=== PATIENT | male | born 1930 | race Caucasian/White ===

== ENCOUNTER 2017-01-20 14:35 | Inpatient (IN) | payer OTHER ==
[2017-01-18 19:57] LABS: BASOPHILS 0.2 %; BASOPHILS ABSOLUTE 0.02 10/3/uL (0.0-0.16); EOSINOPHILS 1.5 %; EOSINOPHILS ABSOLUTE 0.14 10/3/uL (0.0-0.53); HEMATOCRIT 37.2 % (40.0-51.0); HEMOGLOBIN 12.5 g/dL (13.6-17.8); IMMATURE GRANULOCYTES 0.2 %; IMMATURE GRANULOCYTES ABSOLUTE 0.02 10/3/uL (0.0-0.11); LYMPHOCYTES 29.7 %; LYMPHOCYTES ABSOLUTE 2.69 10/3/uL (0.67-4.30); MANUAL DIFF NO %; MEAN CORPUS HGB CONC 33.6 g/dL (32.0-36.0); MEAN CORPUSCULAR HEMOGLOB 30.2 pg (26.0-34.0); MEAN CORPUSCULAR VOLUME 89.9 fL (80-100); MEAN PLATELET VOLUME 11.6 fL (9.2-13.0); MONOCYTES 7.3 %; MONOCYTES ABSOLUTE 0.66 10/3/uL (0.21-1.20); NEUTROPHILS 61.1 %; NEUTROPHILS ABSOLUTE 5.53 10/3/uL (2.02-8.40); PLATELET COUNT 139 10/3/uL (150-400); RBC DISTRIBUTION WIDTH 14.7 % (12.0-16.0); RED CELL COUNT 4.14 10/6/uL (4.7-6.1); WHITE BLOOD CELLS 9.1 10/3/uL (4.5-10.5)
[2017-01-18 20:03] LABS: A/G RATIO 1.1 (0.7-1.9); ALBUMIN 3.3 G/DL (3.5-5.0); ALKALINE PHOSPHATASE 120 U/L (45-117); CHLORIDE, SERUM 101 MMOL/L (96-112); CREATININE 1.33 MG/DL (0.70-1.30); GFR AFRICAN AMERICAN 56 ML/MIN (>=60); GFR NON AFRICAN AMERICAN 49 ML/MIN (>=60); GLOBULIN 2.9 G/DL (2.5-4.1); SGOT(AST) 18 U/L (5-40); SGPT(ALT) 16 U/L (5-65); SODIUM, SERUM 136 MMOL/L (135-148); TOTAL PROTEIN 6.2 G/DL (6.0-8.5)
[2017-01-18 20:04] LABS: BUN (BLOOD UREA NITROGEN) 31 MG/DL (6-23); CALCIUM, SERUM 9.8 MG/DL (8.5-10.4); CO2 (CARBON DIOXIDE) 28 MMOL/L (24-34); GLUCOSE, SERUM 326 MG/DL (60-99); POTASSIUM, SERUM 5.1 MMOL/L (3.5-5.3); TOTAL BILIRUBIN 0.3 MG/DL (0-1.2)
--- NOTE | ~2017-01-20 | DS ---
Discharge Summary [facility] [address] [facility] [place]. [address] NAME: GOPAL ZELAYA : 32 STATUS : DIS IN PAT#: [id number] AGE: 86 ADM/REG DATE : 01/20/17 MR#: [id number] REPORT SERV DATE: 01/24/17 DICTATED BY: TIAN LINDSAY DATE: 01/24/17 REPORT STATUS : Draft TRANSCRIBED BY: MODL DATE: 01/24/17 ADMISSION DATE: 01/20/2017 DISCHARGE DATE: 01/24/2017 The patient is an 86-year-old male with a history of atrial fibrillation, normocytic anemia, hypertension, diabetes, who presented to the hospital with a complaint of dark red blood for five days per rectum. For further details please refer to H and P dictated by Dr. Vang on 01/20/2017. HOSPITAL COURSE: Upon presentation to the hospital, the patient was diagnosed with GI bleed and admitted on the hospital service for further management. GI was consulted to assist with management for further details. Please refer to consultation note dictated by Enoch Jimenez on 01/21/2017. The patient was placed n.p.o. and prepped for colonoscopy. The patient was taken to the GI Suite where an EGD and colonoscopy were performed. His EGD was negative; however, his colonoscopy noted extensive diverticular disease with blood throughout the colon with bleeding. From GI evaluation etiology of his bleed most likely diverticular bleed. The patient was brought back to the medical floor, placed on clear liquid diet which he tolerated. His H and H's were continued to monitor, which remained stable. The patient's diet was advanced, and the patient tolerated the diet. The patient was cleared for discharge on the ; however, given that the patient was evaluated by Physical Therapy with recommendations for the patient being discharged for subacute rehab caseworker was consulted to assist with placement of the patient. Throughout his entire hospitalization the patient has remained hemodynamically stable. However, given his history of atrial fibrillation the patient was initially was originally on Eliquis, at the time of presentation Eliquis was held. At this time of discharge the patient's Chads2 score is 4 with a 4% risk of a cerebrovascular accident. His HAS-BLED score is 4 placing of an 8.7 risk of rebleeding. Given that at this time his bleeding risk is higher than benefit obtained from anticoagulation and given his advanced age and recent history of bleeding we will hold anticoagulation for now to be re-evaluated by the patient's primary care physician or manager dish as an outpatient setting. All other chronic medical issues were managed in the hospital. Given resolution of presenting symptoms, given conclusion of workup, given his hemodynamic stability, the patient will be discharged to follow up with primary care physician as an outpatient. Plan has been discussed with the patient, who voices understanding and is agreeable with this plan. DISCHARGE DIAGNOSES: 1. Lower gastrointestinal bleed. 2. Atrial fibrillation. 3. Normocytic anemia. 4. Diabetes type 2. 5. Acute kidney injury. 6. Hypertension. 7. Dementia. DISCHARGE PHYSICAL EXAMINATION: VITAL SIGNS: Blood pressure 123/62 with a pulse of 76, respirations 18, O2 saturation 100% on room air, and temperature 97.4. Discharge Summary [address] [address] NAME: GOPAL ZELAYA : 32 STATUS : DIS IN [facility]#: [id number] AGE: 86 ADM/REG DATE : 01/20/17 MR#: [id number] REPORT SERV DATE: 01/24/17 DICTATED BY: TIAN LINDSAY DATE: 01/24/17 REPORT STATUS : Draft TRANSCRIBED BY: CHARLES DATE: 01/24/17 GENERAL: The patient lying in bed, in no acute distress. He is very pleasant, very conversational. HEENT: Normocephalic and atraumatic. Extraocular motors intact. Oral mucosa moist. Pupils round and reactive to light and accommodation. Extraocular motors intact. NECK: Trachea midline and symmetric. No JVD noted. No thyromegaly present. CHEST: Nontender to palpation. CARDIOVASCULAR: Irregularly irregular rate and rhythm. I didn't appreciate any murmurs. LUNGS: Clear to auscultation bilaterally. ABDOMEN: Flat, soft, nontender, and nondistended. No masses palpated. EXTREMITIES: No cyanosis, no clubbing, no edema. NEURO: Alert and oriented x3. No focal deficits appreciated. DISCHARGE MEDICATIONS: 1. Atorvastatin 40 mg p.o. daily. 2. Bumex 1 mg p.o. daily. 3. Vitamin B12 1000 mcg IM q.30 days. 4. Vitamin D 50,000 units p.o. on Fridays. 5. Gabapentin 100 mg p.o. at bedtime. 6. Insulin Levemir 10 mg subcu at bedtime. 7. Xalatan one drop ophthalmic at bedtime. 8. Claritin 10 mg p.o. every morning. 9. Remeron 50 mg p.o. at bedtime. 10.Nexium 40 mg p.o. every morning. 11.Tramadol 50 mg p.o. at 0800, 1200, 1700, and 2100 hours. 12.Metformin 500 mg p.o. with supper. 13.Aspirin 81 mg p.o. daily. 14.Dorzolamide one drop ophthalmic. 15.Tamsulosin 0.4 mg p.o. 8 o'clock and 1700 hours. 16.Mucinex 600 mg p.o. daily. 17.Calmoseptine one application topically at 8 o'clock, and 5:00 p.m. PROCEDURES: The patient underwent upper GI endoscopy on 01/22/2017. The patient also underwent colonoscopy on 01/22/2017. CONSULTANTS: GI. DISPOSITION: The patient will be discharged to acute rehab. ACTIVITY: As tolerated. DIET: Diabetic diet. Greater than 30 minutes were spent on chart review, coordinating care, discussion of case with Case Management, coordinating discharge, dictation of note, and medication reconciliation. Discharge Summary [address] [address] NAME: GOPAL ZELAYA : 32 STATUS : DIS IN [facility]#: [id number] AGE: 86 ADM/REG DATE : 01/20/17 MR#: [id number] REPORT SERV DATE: 01/24/17 DICTATED BY: TIAN LINDSAY DATE: 01/24/17 REPORT STATUS : Draft TRANSCRIBED BY: CHARLES DATE: 01/24/17 LETHA/CHARLES Tian Lindsay MD / [id number] CC: MD Emma Byers NP
--- NOTE | ~2017-01-20 | EGD ---
EGD REPORT [facility] [address] [place] [address] NAME: ELMER ROSA : 32 STATUS : ADM IN PAT#: [id number] AGE: 86 ADM/REG DATE : 01/20/17 MR#: [id number] REPORT SERV DATE: 01/22/17 DICTATED BY: CRISTOPHER DENIS DATE: 01/22/17 REPORT STATUS : Draft [facility]: [facility] DATE: 01/22/17 Endoscopy Center Patient Name: Elmer Rosa Date of : 1930 Attending MD: CRISTOPHER DENIS MD Procedure Date No Time: 01/22/2017 Procedure: Colonoscopy Indications: Hematochezia Referring MD: SINAN HANEY Medicines: Monitored Anesthesia Care Complications: No immediate complications. Estimated blood loss: None. Procedure: Pre-Anesthesia Assessment: - ASA Grade Assessment: IV - A patient with severe systemic disease that is a constant threat to life. After I obtained informed consent, the scope was passed under direct vision. Throughout the procedure, the patient's blood pressure, pulse, and oxygen saturations were monitored continuously. The CF [id number] was introduced through the anus and advanced to the terminal ileum, with identification of the appendiceal orifice and IC valve. The colonoscopy was technically difficult and complex due to multiple diverticula in the colon, inadequate bowel prep and poor endoscopic visualization. The patient tolerated the procedure well. The quality of the bowel preparation was poor. Findings: The perianal and digital rectal examinations were normal. Pertinent negatives include no palpable rectal lesions. The terminal ileum appeared normal. Red blood was found in the entire colon. Many large-mouthed diverticula were found in the sigmoid colon. The exam was otherwise without abnormality on direct and retroflexion views. Impression: - Preparation of the colon was poor. - The examined portion of the ileum was normal. - Blood in the entire examined colon. - Diverticulosis in the sigmoid colon. - The examination was otherwise normal on direct and retroflexion views. Recommendation: - Return patient to hospital priest for observation. - Check hemoglobin q 12 hours until stable. - Clear liquid diet. EGD REPORT [address] [address] NAME: ELMER ROSA : 32 STATUS : ADM IN [facility]#: [id number] AGE: 86 ADM/REG DATE : 01/20/17 MR#: [id number] REPORT SERV DATE: 01/22/17 DICTATED BY: CRISTOPHER DENIS DATE: 01/22/17 REPORT STATUS : Draft TRANSCRIBED BY: Apptentive DATE: 01/22/17 - Expect no further bleeding - If there is recurrent GI bleeding, please call [facility] - If there is recurrent GI bleeding, patient would likely benefit from embolization Procedure Code(s): --- Professional --- 74695, Colonoscopy, flexible, proximal to splenic flexure; diagnostic, with or without collection of specimen(s) by brushing or washing, with or without colon decompression (separate procedure) Diagnosis Code(s): --- Professional --- K57.30, Diverticulosis of large intestine without perforation or abscess without bleeding K92.2, Gastrointestinal hemorrhage, unspecified K92.1, Melena CPT copyright 2013 [employer]. All rights reserved. The codes documented in this report are preliminary and upon public services assistant review may be revised to meet current compliance requirements. Cristopher Denis MD CRISTOPHER DENIS MD 01/22/2017 8:54 AM This report has been signed electronically. Number of Addenda: 0 Note Initiated On: 01/22/2017 7:45 AM Scope Withdrawal Time 0 hours 13 minutes 32 seconds [address] [place] [address]
--- NOTE | ~2017-01-20 | EGD ---
EGD REPORT [facility] [address] [address] NAME: ELMER ROSA : 32 STATUS : ADM IN PAT#: [id number] AGE: 86 ADM/REG DATE : 01/20/17 MR#: [id number] REPORT SERV DATE: 01/22/17 DICTATED BY: CRISTOPHER DENIS DATE: 01/22/17 REPORT STATUS : Draft TRANSCRIBED BY: [facility] DATE: 01/22/17 Endoscopy Center Patient Name: Elmer Rosa Date of : 1930 Attending MD: CRISTOPHER DENIS MD Procedure Date No Time: 01/22/2017 Procedure: Upper GI endoscopy Indications: Hematochezia Referring MD: SINAN HANEY Medicines: Monitored Anesthesia Care Complications: No immediate complications. Estimated blood loss: None. Procedure: Pre-Anesthesia Assessment: - ASA Grade Assessment: IV - A patient with severe systemic disease that is a constant threat to life. After obtaining informed consent, the endoscope was passed under direct vision. Throughout the procedure, the patient's blood pressure, pulse, and oxygen saturations were monitored continuously. The GIF [id number] was introduced through the mouth, and advanced to the second part of duodenum. The upper GI endoscopy was accomplished without difficulty. The patient tolerated the procedure well. Findings: The examined esophagus was normal. No gross lesions were noted in the entire examined stomach. The examined duodenum was normal. The cardia and gastric fundus were normal on retroflexion. Impression: - Normal examination. Recommendation: - Perform a colonoscopy today. Procedure Code(s): --- Professional --- 68681, Esophagogastroduodenoscopy, flexible, transoral; diagnostic, including collection of specimen(s) by brushing or washing, when performed (separate procedure) Diagnosis Code(s): --- Professional --- K92.1, Melena CPT copyright 2013 [employer]. All rights reserved. The codes documented in this report are preliminary and upon processing specialist review may EGD REPORT [place] [address]. [address] NAME: ELMER ROSA : 32 STATUS : ADM IN [facility]#: [id number] AGE: 86 ADM/REG DATE : 01/20/17 MR#: [id number] REPORT SERV DATE: 01/22/17 DICTATED BY: CRISTOPHER DENIS DATE: 01/22/17 REPORT STATUS : Draft TRANSCRIBED BY: [facility] DATE: 01/22/17 be revised to meet current compliance requirements. Cristopher Denis MD CRISTOPHER DENIS MD 01/22/2017 8:49 AM This report has been signed electronically. Number of Addenda: 0 Note Initiated On: 01/22/2017 7:42 AM [facility] [place] [address]
--- NOTE | ~2017-01-20 | HP ---
History And Physical [place] [address] [facility] [place]. [address] NAME: GOPAL ZELAYA : 32 STATUS : ADM IN [facility]#: [id number] AGE: 86 ADM/REG DATE : 01/20/17 MR#: [id number] REPORT SERV DATE: 01/20/17 DICTATED BY: SAVANNAH MCKINNEY DATE: 01/20/17 REPORT STATUS : Draft TRANSCRIBED BY: MODL DATE: 01/20/17 DATE OF ADMISSION: 01/20/2017 REASON FOR ADMISSION: Dark red blood for five days from the rectum. HISTORY OF PRESENT ILLNESS: An 86-year-old male with known history of paroxysmal atrial fibrillation, on chronic Eliquis, has been compliant with it; rtu-yarcyyt-quxvfabrl diabetes in the past, recently placed on insulin; hypertension; dementia, but yet fairly lucid; known history of CAD with CABG; known surgical history of cholecystectomy and CABG. The patient comes in from recent discharge in 11/2016. At that time, had bradycardia due to digoxin toxicity. Concerned about possible pacemaker at some point. The patient apparently is no longer taking his digoxin or metoprolol. Comes in with mild RVR, atrial fibrillation, as well as five-day history of dark red blood from the rectum at least five times a day, and on concomitant Eliquis and aspirin. No fevers. Positive chills. Positive nausea. No vomiting. No diarrhea. No chest pain. No chest pressure. Some mild shortness of breath recently. No abdominal tenderness either. PAST MEDICAL HISTORY: See above. PAST SURGICAL HISTORY: Includes unclear bladder electrode propagation system done in [place] years ago, apparently does not help with his urinary incontinence. ALLERGIES: APPARENTLY IS CODEINE. FAMILY HISTORY: Hypertension in at least one parent. HOME MEDICATIONS: See MAR. Continue what is relevant, for which he is on Nexium, aspirin, and Eliquis as an outpatient. SOCIAL HISTORY: Does not drink, do drugs, or do alcohol. Is at [facility]. OBJECTIVE: VITAL SIGNS: 140/78, 98.1 temp, 118 pulse, 18 respirations, 98% room air. GENERAL: In no acute distress. HEENT: PERRLA. No scleral icterus. CARDIOVASCULAR: Tachycardic. No murmur auscultated. RESPIRATORY: Decreased breath sounds. No wheezes. No crackles. Clear to auscultation bilaterally. ABDOMEN: Nontender, nondistended. Positive bowel sounds. EXTREMITIES: No edema, no ecchymosis. NEURO: A and O x4/4. GCS 15. LABORATORY DATA: Labs have a white count that is 6.7, hemoglobin is 9.4, 145,000 platelets, 4.7 potassium, 27 bicarb, 1.56 creatinine, 33 BUN, 138 sodium, 412 sugar. Troponin is normal. INR 1.6. I am going to get a CT abdomen and pelvis. There is an EKG that has what appears to be pacer spikes throughout. No ischemic ST-T changes noted. History And Physical [address] [place]. [address] NAME: GOPAL ZELAYA : [birth year] STATUS : ADM IN [facility]#: [id number] AGE: 86 ADM/REG DATE : 01/20/17 MR#: [id number] REPORT SERV DATE: 01/20/17 DICTATED BY: SAVANNAH MCKINNEY DATE: 01/20/17 REPORT STATUS : Draft TRANSCRIBED BY: CHARLES DATE: 01/20/17 ASSESSMENT AND PLAN: 1. Acute blood loss anemia likely due to mid versus lower gastrointestinal tract bleed. 2. Atrial fibrillation, rapid ventricular response. Has a known history of symptomatic bradycardia due to digoxin. Was taken off even beta-blockade. 3. Acute kidney injury versus chronic kidney disease, known. This more than likely is acute kidney injury on chronic kidney disease, baseline is prior 1.0 to 1.3. 4. Suspected dementia, but fairly lucid. 5. Hyperglycemia. Get A1c to determine if insulin dependent. PLAN: We will go ahead and admit this patient. We will give IV iron dextran. H and H q.6. If drops less than 7, we will go ahead and transfuse 2 units. I will ask Cardiology to come by. Given the fact that the patient has symptomatic bradycardia due to digoxin toxicity, was not recommend to have any metoprolol. This patient is not on any AV lorena blocking agents as an outpatient. As a result, if persistently tachycardic, we will place the patient on amiodarone until Cardiology can see the patient and I will go ahead and ask GI to evaluate for likely endoscopy, then colonoscopy thereafter. We will also hold his Eliquis and aspirin at this time. Could consider possible Plavix if indeed he has a GI blood loss as a result of any ulceration. Would need at least 12 weeks of PPI b.i.d. therapy. In the interim, place on IV PPI b.i.d. We will also go ahead and get a CT abdomen and pelvis for nephrolithiasis rule out and to determine any occult bleed. Give NovoLog 8 units at this time and then Accu-Cheks q.6. See rest of my orders. All questions were answered. Took well over 60 minutes to do. We will ask pharmacy to please do home LUIS MIGUEL. GELY/MODL Savannah Mckinney DO / [id number] CC: MD SINAN Schmitt
--- NOTE | ~2017-01-20 | CN ---
Consultation Report [facility] [address] [place]. [address] NAME: GOPAL ROSA : 34 STATUS : ADM IN [facility]#: [id number] AGE: 86 ADM/REG DATE : 01/20/17 MR#: [id number] REPORT SERV DATE: 01/21/17 DICTATED BY: TARYN HALL DATE: 01/21/17 REPORT STATUS : Draft TRANSCRIBED BY: MODL DATE: 01/21/17 GI CONSULTATION DATE OF CONSULTATION: 01/21/2017 REASON FOR CONSULTATION: Evaluation and management of GI bleeding. HISTORY OF PRESENT ILLNESS: Mr. Rosa is an 86-year-old male patient, who was admitted on 01/20 with chief complaint of dark red blood per rectum for roughly seven days. The patient tells me that he began having bleeding seven days ago. He states he has had multiple bloody movements on a daily basis. He has a history of atrial fibrillation, on chronic Eliquis and aspirin. He states that he has never had GI bleeding before. This is painless. He has not seen any black tarry stools or any nausea or vomiting. No fever, chills, chest pain, or shortness of breath. He has had some mild weakness and near syncopal episodes with change of position per his report. He states that he had a bloody bowel movement overnight, but nothing this morning. He has been held n.p.o. after midnight. Plan from a GI perspective is to prep him today for EGD and colonoscopy to be done tomorrow as his last dose of Eliquis was yesterday morning. This would need to be held for eight hours prior to endoscopy. I did discuss this with him. Risks, benefits, alternatives, and complications were detailed for him to include, but not limited to risk of bleeding, perforation, infection, reaction to medications as well as cardiac and pulmonary side effects. He is agreeable to proceed. The patient does tell me that he has never had an EGD nor a colonoscopy nor has he had GI bleeding in the past. PAST MEDICAL HISTORY: Positive for coronary artery disease, status post CABG; atrial fibrillation, on Eliquis and aspirin; hypertension; type 2 diabetes; hypercholesterolemia; bradyarrhythmia. PAST SURGICAL HISTORY: Includes cholecystectomy and CABG. SOCIAL HISTORY: No alcohol, tobacco, or illicits. Apparently, he lives at an assisted living facility. FAMILY HISTORY: Noncontributory from a GI standpoint. ALLERGIES: CODEINE. HOME MEDICATIONS: Eliquis, aspirin, Lipitor, Bumex, Calmoseptine, vitamin B12, Trusopt, vitamin D, Nexium, Neurontin, Mucinex, Levemir, Xalatan, Claritin, Fortamet, Remeron, Flomax, Ultram. REVIEW OF SYSTEMS: A 10-point review of systems obtained with pertinent positives addressed in the history of present illness. Consultation Report [address] [place]. [address] NAME: GOPAL ROSA : 34 STATUS : ADM IN [facility]#: [id number] AGE: 86 ADM/REG DATE : 01/20/17 MR#: [id number] REPORT SERV DATE: 01/21/17 DICTATED BY: TARYN HALL DATE: 01/21/17 REPORT STATUS : Draft TRANSCRIBED BY: MODL DATE: 01/21/17 PERTINENT LABORATORY DATA: Sodium is 145, potassium 4.0, BUN is 28, creatinine 1.07. White count is 7.7, hemoglobin 9, hematocrit 27.0, platelet count 150. INR 1.6. Troponin 0.06. It should be noted hemoglobin on 01/18/2017 was 12.5, as well as a hemoglobin in 11/[address] of the abdomen and pelvis is ordered, but not been taken. PHYSICAL EXAMINATION: VITAL SIGNS: Temperature 97.5, pulse 95, respirations 18, and blood pressure 111/66. NEURO: Reveals a male, resting in bed, who awakens to name. He is mildly confused on awakening, but is clear after he becomes more awake. He is oriented x3. GENERAL: He is cooperative. He is in no obvious distress. HEAD, EARS, EYES, NOSE, AND THROAT: Anicteric. Pupils equal, round, reactive to light and accommodation. Normocephalic and atraumatic. NECK: No JVD. No palpable nodes. Supple. LUNGS: Diminished bilaterally in the bases with normal respiratory effort exhibited. Equal expansion. Clear in the upper lobes. CARDIOVASCULAR SYSTEM: Irregular rate and rhythm. ABDOMEN: Soft, nontender, nondistended. No rebound or guarding elicited on exam. No organomegaly. He has active bowel sounds in all four quadrants. EXTREMITIES: No edema. Normal distal pulses. SKIN: Warm, dry, and intact. RECTAL: With maroon blood in the rectal vault. No palpable masses. ASSESSMENT: 1. GI bleed with maroon stools for seven days in duration. Differential diagnosis includes diverticular, peptic ulcer disease, AVMs, neoplasm, or hemorrhoidal. 2. Acute blood loss anemia. 3. Atrial fibrillation, on Eliquis, last dose on 01/20 at 8 a.m. 4. Acute kidney injury. 5. Mild dementia. PLAN: 1. GoLYTELY bowel prep today. 2. Monitor H and H, transfuse as needed. 3. EGD and colonoscopy on 01/[address] García. Other recommendations to follow exam. CIRA/CHARLES [place] TRINA Graham / [id number] Consultation Report [address] [address] NAME: GOPAL ROSA : [birth year] STATUS : ADM IN [facility]#: [id number] AGE: 86 ADM/REG DATE : 01/20/17 MR#: [id number] REPORT SERV DATE: 01/21/17 DICTATED BY: TARYN HALL DATE: 01/21/17 REPORT STATUS : Draft TRANSCRIBED BY: MODL DATE: 01/21/17 CC: MD Julian Schmitt Sherry R.
[2017-01-20 12:43] LABS: BASOPHILS 0.2 %; BASOPHILS ABSOLUTE 0.01 10/3/uL (0.0-0.16); EOSINOPHILS 0.5 %; EOSINOPHILS ABSOLUTE 0.03 10/3/uL (0.0-0.53); ER CBC TAT 0 Hrs 08 Mins; HEMATOCRIT 27.9 % (40.0-51.0); HEMOGLOBIN 9.4 g/dL (13.6-17.8); IMMATURE GRANULOCYTES 0.2 %; IMMATURE GRANULOCYTES ABSOLUTE 0.01 10/3/uL (0.0-0.11); LYMPHOCYTES 21.3 %; LYMPHOCYTES ABSOLUTE 1.42 10/3/uL (0.67-4.30); MANUAL DIFF NO %; MEAN CORPUS HGB CONC 33.7 g/dL (32.0-36.0); MEAN CORPUSCULAR HEMOGLOB 30.3 pg (26.0-34.0); MEAN PLATELET VOLUME 10.5 fL (9.2-13.0); MONOCYTES 6.3 %; MONOCYTES ABSOLUTE 0.42 10/3/uL (0.21-1.20); NEUTROPHILS 71.5 %; NEUTROPHILS ABSOLUTE 4.77 10/3/uL (2.02-8.40); PLATELET COUNT 145 10/3/uL (150-400); RBC DISTRIBUTION WIDTH 15.1 % (12.0-16.0); WHITE BLOOD CELLS 6.7 10/3/uL (4.5-10.5)
[2017-01-20 12:49] LABS: INTERNATIONAL NORMAL RATI 1.6 UNITS (-); PARTIAL THROMBO TIME 35.4 SEC (22.5-37.2); PROTIME (NOT ORD) 18.8 SEC (12.0-14.5)
[2017-01-20 13:00] LABS: A/G RATIO 1.1 (0.7-1.9); ALBUMIN 2.9 G/DL (3.5-5.0); BUN (BLOOD UREA NITROGEN) 33 MG/DL (6-23); CALCIUM, SERUM 9.4 MG/DL (8.5-10.4); CHLORIDE, SERUM 103 MMOL/L (96-112); CO2 (CARBON DIOXIDE) 27 MMOL/L (24-34); CREATININE 1.56 MG/DL (0.70-1.30); GFR AFRICAN AMERICAN 47 ML/MIN (>=60); GFR NON AFRICAN AMERICAN 40 ML/MIN (>=60); GLOBULIN 2.7 G/DL (2.5-4.1); POTASSIUM, SERUM 4.7 MMOL/L (3.5-5.3); SGOT(AST) 12 U/L (5-40); SGPT(ALT) 14 U/L (5-65); SODIUM, SERUM 138 MMOL/L (135-148); TOTAL BILIRUBIN 0.3 MG/DL (0-1.2); TOTAL PROTEIN 5.6 G/DL (6.0-8.5); TROPONIN I 0.04 NG/ML (<0.05)
[2017-01-20 13:02] LABS: BAND NEUTROPHILS 5 %; EOSINOPHILS 1 %; EOSINOPHILS ABSOLUTE (CALC) 0.07 10/3/uL (0.0-0.53); ER DIFF TAT 0 Hrs 27 Mins; HELMET CELLS OCC (0-2/OIF); LYMPHOCYTES 22 %; LYMPHOCYTES ABSOLUTE (CALC) 1.47 10/3/uL (0.67-4.30); MONOCYTES 7 %; MONOCYTES ABSOLUTE (CALC) 0.47 10/3/uL (0.21-1.20); NEUTROPHILS ABSOLUTE (CALC) 4.69 10/3/uL (2.02-8.40); PLATELET ESTIMATE SLT DEC (ADEQUATE); POLYCHROMASIA 1+ (2-5/OIF) (0-1/OIF); SEGMENTED NEUTROPHIL (0) 65 %; TEARDROP SHAPED RBCS OCC (0-2/OIF); TOTAL NUCLEATED CELLS 100
[2017-01-20 13:04] LABS: ELLIPTOCYTES 1+ (3-10/OIF) (0-2/OIF)
[2017-01-20 13:11] LABS: ALKALINE PHOSPHATASE 102 U/L (45-117); GLUCOSE, SERUM 412 MG/DL (60-99)
[~2017-01-20 14:35] MED LIST: AMPI250 PO; ASAB PO; BUM1 PO; CALMOSEPTINE O2.5 OZ TOP; CLARIT10 PO; DIGITEK0.25 MG PO; ELIQUIS 5 MG TAB5 MG PO; FLOMAX4 PO; FORTAMET500 MG PO; GLUCXL5 PO; LIPITOR40 PO; LOP25 PO; MONODOX100 MG PO; MUCINEX600 MG PO; NEUR100 PO; NEXIUM40 PO; PROAIR HFA INH; SPIRO25 PO; TRUSOPT2 % OPH; ULTRAM50 PO; VITD PO; XALAT OPH
[2017-01-20] MEDS ORDERED: B121000P IM (15:38)
[2017-01-20] MEDS ORDERED: REM15 PO (15:42)
[2017-01-20] MEDS ORDERED: LEVEMIR SC (15:44)
[2017-01-20 22:09] LABS: HEMATOCRIT 26.1 % (40.0-51.0); HEMOGLOBIN 8.7 g/dL (13.6-17.8)
[2017-01-20 22:31] LABS: PHOSPHORUS, SERUM 2.5 MG/DL (2.5-4.5); ULTRASENSITIVE TSH 0.716 MCIU/ML (0.358-3.740)
[2017-01-20 22:32] LABS: TROPONIN I 0.06 NG/ML (<0.05)
[2017-01-20 22:47] LABS: PROCALCITONIN <0.05 ng/mL (<0.5)
[2017-01-21 01:03] LABS: ASCORBIC ACID (UR NOT ORDER) NEG (NEG); BILIRUBIN, URINE NEGATIVE (NEG); KETONE, URINE NEGATIVE (NEG); LEUKOCYTE ESTERASE(NOT OR SMALL (NEG); WBC (NOT ORDERED) (RFLEX) 12 (0-5)
[2017-01-21 01:10] LABS: CREATININE, URINE 50.4 MG/DL
[2017-01-21 03:40] LABS: BASOPHILS 0.1 %; BASOPHILS ABSOLUTE 0.01 10/3/uL (0.0-0.16); EOSINOPHILS 2.1 %; EOSINOPHILS ABSOLUTE 0.16 10/3/uL (0.0-0.53); IMMATURE GRANULOCYTES 0.3 %; IMMATURE GRANULOCYTES ABSOLUTE 0.02 10/3/uL (0.0-0.11); LYMPHOCYTES 38.6 %; LYMPHOCYTES ABSOLUTE 2.96 10/3/uL (0.67-4.30); MEAN CORPUS HGB CONC 33.3 g/dL (32.0-36.0); MEAN PLATELET VOLUME 10.4 fL (9.2-13.0); MONOCYTES 4.6 %; MONOCYTES ABSOLUTE 0.35 10/3/uL (0.21-1.20); NEUTROPHILS 54.3 %; NEUTROPHILS ABSOLUTE 4.16 10/3/uL (2.02-8.40); PLATELET COUNT 150 10/3/uL (150-400); RBC DISTRIBUTION WIDTH 14.9 % (12.0-16.0); WHITE BLOOD CELLS 7.7 10/3/uL (4.5-10.5)
[2017-01-21 03:43] LABS: MANUAL DIFF NO %
[2017-01-21 03:56] LABS: BUN (BLOOD UREA NITROGEN) 28 MG/DL (6-23); CALCIUM, SERUM 9.1 MG/DL (8.5-10.4); CHLORIDE, SERUM 109 MMOL/L (96-112); CO2 (CARBON DIOXIDE) 30 MMOL/L (24-34); CREATININE 1.07 MG/DL (0.70-1.30); GFR AFRICAN AMERICAN 73 ML/MIN (>=60); GFR NON AFRICAN AMERICAN 63 ML/MIN (>=60); GLUCOSE, SERUM 164 MG/DL (60-99); PHOSPHORUS, SERUM 2.9 MG/DL (2.5-4.5); SODIUM, SERUM 145 MMOL/L (135-148)
[2017-01-21 09:51] LABS: B NATRIURETIC PEPTIDE (BNP) 255.9 PG/ML (< 100.0)
[2017-01-21 10:27] LABS: GLYCOHEMOGLOBIN (HbA1c) 9.3 % (4.7-6.1)
[2017-01-21 13:57] LABS: HEMOGLOBIN 10.4 g/dL (13.6-17.8)
[2017-01-21 13:58] LABS: HEMATOCRIT 31.1 % (40.0-51.0)
[2017-01-21 17:18] LABS: HEMATOCRIT 26.5 % (40.0-51.0); HEMOGLOBIN 8.7 g/dL (13.6-17.8)
[2017-01-21 22:01] LABS: HEMATOCRIT 26.6 % (40.0-51.0); HEMOGLOBIN 8.5 g/dL (13.6-17.8)
[2017-01-22 03:37] LABS: BASOPHILS 0.1 %; BASOPHILS ABSOLUTE 0.01 10/3/uL (0.0-0.16); EOSINOPHILS 1.3 %; EOSINOPHILS ABSOLUTE 0.11 10/3/uL (0.0-0.53); IMMATURE GRANULOCYTES 0.2 %; IMMATURE GRANULOCYTES ABSOLUTE 0.02 10/3/uL (0.0-0.11); LYMPHOCYTES 27.8 %; LYMPHOCYTES ABSOLUTE 2.27 10/3/uL (0.67-4.30); MEAN CORPUS HGB CONC 33.5 g/dL (32.0-36.0); MEAN CORPUSCULAR HEMOGLOB 30.3 pg (26.0-34.0); MEAN CORPUSCULAR VOLUME 90.5 fL (80-100); MEAN PLATELET VOLUME 10.3 fL (9.2-13.0); MONOCYTES 7.6 %; MONOCYTES ABSOLUTE 0.62 10/3/uL (0.21-1.20); NEUTROPHILS ABSOLUTE 5.15 10/3/uL (2.02-8.40); PLATELET COUNT 162 10/3/uL (150-400); RBC DISTRIBUTION WIDTH 14.9 % (12.0-16.0); RED CELL COUNT 2.64 10/6/uL (4.7-6.1); WHITE BLOOD CELLS 8.2 10/3/uL (4.5-10.5)
[2017-01-22 03:38] LABS: HEMATOCRIT 23.9 % (40.0-51.0); MANUAL DIFF NO %
[2017-01-22 03:43] LABS: INTERNATIONAL NORMAL RATI 1.4 UNITS (-); PROTIME (NOT ORD) 16.9 SEC (12.0-14.5)
[2017-01-22 03:48] LABS: CALCIUM, SERUM 9.1 MG/DL (8.5-10.4); CHLORIDE, SERUM 106 MMOL/L (96-112); CO2 (CARBON DIOXIDE) 31 MMOL/L (24-34); CREATININE 1.02 MG/DL (0.70-1.30); GFR AFRICAN AMERICAN 78 ML/MIN (>=60); GFR NON AFRICAN AMERICAN 67 ML/MIN (>=60); GLUCOSE, SERUM 178 MG/DL (60-99); PHOSPHORUS, SERUM 2.6 MG/DL (2.5-4.5); POTASSIUM, SERUM 3.6 MMOL/L (3.5-5.3); SODIUM, SERUM 146 MMOL/L (135-148)
[2017-01-22 03:49] LABS: BUN (BLOOD UREA NITROGEN) 18 MG/DL (6-23)
[2017-01-22 10:23] LABS: HEMATOCRIT 26.7 % (40.0-51.0); HEMOGLOBIN 8.7 g/dL (13.6-17.8)
[2017-01-22 16:29] LABS: HEMOGLOBIN 7.8 g/dL (13.6-17.8)
[2017-01-22 16:30] LABS: HEMATOCRIT 23.7 % (40.0-51.0)
[2017-01-23 06:49] LABS: BASOPHILS 0.3 %; BASOPHILS ABSOLUTE 0.02 10/3/uL (0.0-0.16); EOSINOPHILS 2.4 %; EOSINOPHILS ABSOLUTE 0.16 10/3/uL (0.0-0.53); HEMOGLOBIN 9.1 g/dL (13.6-17.8); IMMATURE GRANULOCYTES 0.3 %; IMMATURE GRANULOCYTES ABSOLUTE 0.02 10/3/uL (0.0-0.11); LYMPHOCYTES 36.4 %; LYMPHOCYTES ABSOLUTE 2.45 10/3/uL (0.67-4.30); MEAN CORPUSCULAR HEMOGLOB 29.7 pg (26.0-34.0); MEAN PLATELET VOLUME 9.9 fL (9.2-13.0); MONOCYTES ABSOLUTE 0.47 10/3/uL (0.21-1.20); NEUTROPHILS 53.6 %; NEUTROPHILS ABSOLUTE 3.61 10/3/uL (2.02-8.40); PLATELET COUNT 153 10/3/uL (150-400); RBC DISTRIBUTION WIDTH 16.5 % (12.0-16.0); RED CELL COUNT 3.06 10/6/uL (4.7-6.1); WHITE BLOOD CELLS 6.7 10/3/uL (4.5-10.5)
[2017-01-23 06:50] LABS: HEMATOCRIT 26.8 % (40.0-51.0); MANUAL DIFF NO %; MEAN CORPUSCULAR VOLUME 87.6 fL (80-100)
[2017-01-23 07:11] LABS: ALBUMIN 2.3 G/DL (3.5-5.0); ALKALINE PHOSPHATASE 89 U/L (45-117); BUN (BLOOD UREA NITROGEN) 9 MG/DL (6-23); CALCIUM, SERUM 8.7 MG/DL (8.5-10.4); CHLORIDE, SERUM 106 MMOL/L (96-112); CO2 (CARBON DIOXIDE) 30 MMOL/L (24-34); CREATININE 0.97 MG/DL (0.70-1.30); GFR AFRICAN AMERICAN 83 ML/MIN (>=60); GFR NON AFRICAN AMERICAN 71 ML/MIN (>=60); GLOBULIN 2.3 G/DL (2.5-4.1); GLUCOSE, SERUM 125 MG/DL (60-99); PHOSPHORUS, SERUM 2.6 MG/DL (2.5-4.5); POTASSIUM, SERUM 3.7 MMOL/L (3.5-5.3); SGOT(AST) 24 U/L (5-40); SGPT(ALT) 13 U/L (5-65); SODIUM, SERUM 143 MMOL/L (135-148); TOTAL BILIRUBIN 0.3 MG/DL (0-1.2); TOTAL PROTEIN 4.6 G/DL (6.0-8.5)
[2017-01-23 16:08] LABS: HEMATOCRIT 27.5 % (40.0-51.0); HEMOGLOBIN 9.2 g/dL (13.6-17.8)
[2017-01-24 05:57] LABS: BASOPHILS 0.2 %; BASOPHILS ABSOLUTE 0.02 10/3/uL (0.0-0.16); EOSINOPHILS 1.8 %; EOSINOPHILS ABSOLUTE 0.15 10/3/uL (0.0-0.53); HEMATOCRIT 26.7 % (40.0-51.0); HEMOGLOBIN 8.9 g/dL (13.6-17.8); IMMATURE GRANULOCYTES 0.2 %; IMMATURE GRANULOCYTES ABSOLUTE 0.02 10/3/uL (0.0-0.11); LYMPHOCYTES 28.8 %; LYMPHOCYTES ABSOLUTE 2.36 10/3/uL (0.67-4.30); MEAN CORPUS HGB CONC 33.3 g/dL (32.0-36.0); MEAN CORPUSCULAR HEMOGLOB 29.5 pg (26.0-34.0); MEAN CORPUSCULAR VOLUME 88.4 fL (80-100); MEAN PLATELET VOLUME 10.2 fL (9.2-13.0); MONOCYTES 10.7 %; MONOCYTES ABSOLUTE 0.88 10/3/uL (0.21-1.20); NEUTROPHILS 58.3 %; NEUTROPHILS ABSOLUTE 4.76 10/3/uL (2.02-8.40); PLATELET COUNT 173 10/3/uL (150-400); RBC DISTRIBUTION WIDTH 16.1 % (12.0-16.0); RED CELL COUNT 3.02 10/6/uL (4.7-6.1); WHITE BLOOD CELLS 8.2 10/3/uL (4.5-10.5)
[2017-01-24 06:04] LABS: MANUAL DIFF NO %
[2017-01-24 06:12] LABS: ALBUMIN 2.4 G/DL (3.5-5.0); ALKALINE PHOSPHATASE 100 U/L (45-117); BUN (BLOOD UREA NITROGEN) 9 MG/DL (6-23); CALCIUM, SERUM 8.9 MG/DL (8.5-10.4); CHLORIDE, SERUM 106 MMOL/L (96-112); CO2 (CARBON DIOXIDE) 28 MMOL/L (24-34); CREATININE 1.04 MG/DL (0.70-1.30); GFR AFRICAN AMERICAN 76 ML/MIN (>=60); GFR NON AFRICAN AMERICAN 66 ML/MIN (>=60); GLOBULIN 2.3 G/DL (2.5-4.1); POTASSIUM, SERUM 3.9 MMOL/L (3.5-5.3); SGPT(ALT) 21 U/L (5-65); SODIUM, SERUM 142 MMOL/L (135-148); TOTAL BILIRUBIN 0.3 MG/DL (0-1.2); TOTAL PROTEIN 4.7 G/DL (6.0-8.5)
[2017-01-24 06:13] LABS: GLUCOSE, SERUM 90 MG/DL (60-99)
[2017-01-24 06:14] LABS: SGOT(AST) 24 U/L (5-40)
[2017-05-07] MEDS ORDERED: DSS PO ×2 (23:41→23:47)
[2017-05-07] MEDS ORDERED: SENTAB PO ×2 (23:41→23:46)
[2017-05-07] MEDS ORDERED: XALAT OPH (23:42)
[2017-05-07] MEDS ORDERED: ULTRAM50 PO ×2 (23:42→23:43)
[2017-05-07] MEDS ORDERED: MUCINEX600 MG PO (23:42)
[2017-05-07] MEDS ORDERED: NOVOLOG SC (23:43)
[2017-05-07] MEDS ORDERED: LEVEMIR SC (23:43)
[2017-05-07] MEDS ORDERED: REM15 PO (23:44)
[2017-05-07] MEDS ORDERED: TRUSOPT2 % OPH (23:44)
[2017-05-07] MEDS ORDERED: VITD PO (23:44)
[2017-05-07] MEDS ORDERED: PEP20 PO (23:45)
[2017-05-07] MEDS ORDERED: SUCR PO (23:46)
[2017-05-07] MEDS ORDERED: CALMOSEPTINE O2.5 OZ TOP (23:46)
[2017-05-07] MEDS ORDERED: FLOMAX4 PO (23:46)
[2017-05-07] MEDS ORDERED: BUM1 PO (23:47)
[2017-05-07] MEDS ORDERED: LIPITOR20 PO (23:47)
[2017-05-07] MEDS ORDERED: FLORINEF0.1 MG PO (23:47)
[2017-05-07] MEDS ORDERED: NEXIUM40 PO (23:47)
[2017-05-07] MEDS ORDERED: NEUR100 PO (23:48)
[2017-05-07] MEDS ORDERED: GLUCOPHXR PO (23:48)
[2017-05-08] MEDS ORDERED: ELIQUIS 5 MG TAB5 MG PO (13:27)
[2017-05-08] MEDS ORDERED: IMDUR30 PO (13:27)
[2017-05-08] MEDS ORDERED: ASAB PO (13:28)
== END 2017-01-24 14:31 | DRG 378 ==
LOC: ER 14:35 → 2SO 16:56
PROVIDERS: Hospitalist; Internal Medicine; Internal Medicine Gastroenterology; Internal Medicine Geriatric Medicine; Nurse Practitioner Family; Physician Assistant
PROC: 30233N1 Transfusion of Nonautologous Red Blood Cells into Peripheral Vein, Percutaneous Approach (ICD-10-PCS; 2017-01-22)
PROC: 0DJD8ZZ Inspection of Lower Intestinal Tract, Via Natural or Artificial Opening Endoscopic (ICD-10-PCS; principal; 2017-01-22 07:00)
PROC: 0DJ08ZZ Inspection of Upper Intestinal Tract, Via Natural or Artificial Opening Endoscopic (ICD-10-PCS; 2017-01-22 07:00)
DX: K92.2 Gastrointestinal hemorrhage, unspecified (principal); D62 Acute posthemorrhagic anemia; N17.9 Acute kidney failure, unspecified; E11.22 Type 2 diabetes mellitus with diabetic chronic kidney disease; I48.0 Paroxysmal atrial fibrillation; F03.90 Unspecified dementia, unspecified severity, without behavioral disturbance, psychotic disturbance, mood disturbance, and anxiety; I48.2 Chronic atrial fibrillation; N18.9 Chronic kidney disease, unspecified; J44.9 Chronic obstructive pulmonary disease, unspecified; I12.9 Hypertensive chronic kidney disease with stage 1 through stage 4 chronic kidney disease, or unspecified chronic kidney disease; I25.10 Atherosclerotic heart disease of native coronary artery without angina pectoris; Z79.4 Long term (current) use of insulin; Z95.1 Presence of aortocoronary bypass graft; Z90.49 Acquired absence of other specified parts of digestive tract; Z98.890 Other specified postprocedural states; Z79.01 Long term (current) use of anticoagulants; Z82.49 Family history of ischemic heart disease and other diseases of the circulatory system; Z79.899 Other long term (current) drug therapy; Z79.82 Long term (current) use of aspirin; Z88.5 Allergy status to narcotic agent
CPT/HCPCS: 36415; 74176; 80048; 80053; 81001; 82140; 82270; 82272; 82570; 82962; 83036; 83735; 83880; 83935; 84100; 84145; 84300; 84443; 84484; 85014; 85018; 85025; 85610; 85730; 86850; 86900; 86901; 86920; 87045; 87046; 87046-59; 87077; 87086; 87186; 87328; 87329; 87899; 87899-59; 89055; 93005; 97110-GP; 97116-GP; 97162-GP; 99285; A9270-GY; C9113; J1750; J2370; J2405; P9016